=== PATIENT | male | born 1940 | race Caucasian/White ===

== ENCOUNTER 2017-07-04 15:44 | Outpatient (CLI) | payer MEDICARE, BC ==
--- NOTE | 2017-07-04 16:52 | Ultrasound Preliminary Report ---
Exam: US Duplex Ext Veins Left IMPRESSION: No evidence for deep venous thrombosis. [facility] SITE ID: [id number]
--- NOTE | 2017-07-04 16:55 | Ultrasound Report ---
EXAM: LEFT LOWER EXTREMITY VENOUS ULTRASOUND EXAM DATE: 07/04/2017 04:35 PM. CLINICAL HISTORY: LT LOWER EXTREMITY SWELLING. COMPARISON: None. TECHNIQUE: Real-time sonographic vascular imaging was performed by the pairer substandard through the lower extremity utilizing both color-flow and Doppler spectral analysis. Multiple cash applications representative static angeles ges were saved for review. FINDINGS: Common Femoral Vein (CFV): Normal. CFV-GSV Junction: Normal. Profunda Femoral Vein (PFV): Normal. Femoral Vein (FV) Prox: Normal. Femoral Vein (FV) Mid: Normal. Femoral Vein (FV) Dist: Normal. Popliteal Vein: Normal. Posterior Tibial Veins: Normal. Peroneal Veins: Normal. Other: None. IMPRESSION: No evidence for deep venous thrombosis. [facility] Referring Provider Line: [phone] SITE ID: [id number]
== END 2017-07-04 15:45 | disposition home or self-care (01) ==
LOC: DI 15:44
PROVIDERS: ATTEND Internal Medicine
DX: M79.89 Other specified soft tissue disorders (principal)

== ENCOUNTER 2017-07-14 07:42 | Outpatient (CLI) | payer MEDICARE, OTHER, BC ==
--- NOTE | 2017-07-14 15:10 | MRI Report ---
EXAM: LEFT KNEE MRI WITHOUT CONTRAST EXAM DATE: 07/14/2017 08:30 AM. CLINICAL HISTORY: Left knee pain and instability. Left lower leg swelling. COMPARISON: None. TECHNIQUE: Multiplanar, multisequence T1-weighted and fluid-sensitive sequences of the knee without c ontrast. Other: None. FINDINGS: Bones and Articular Cartilage: There are areas of grade 4 and grade 3 chondromalacia at the lateral f emoral condyle and lateral tibial plateau. Marrow edema and slight cortical irregularity at lateral f emoral condyle and lateral tibial plateau. Small osteophytes of the tibial plateau and lateral femora l condyle. Grade 2-3 chondromalacia at the medial compartment. Grade 2 chondromalacia at the patella. No subluxation. No acute fracture. Medial Meniscus: Horizontal tear at the posterior horn. A tiny portion of the posterior horn is flipp ed inferomedially within the medial tibial recess (coronal image 21). Lateral Meniscus: There is a horizontal tear and degenerative free edge fraying within the entire lat eral meniscus. The lateral meniscal body is partially extruded laterally from the lateral joint leilani rtment. Cruciate Ligaments: The anterior and posterior cruciate ligaments are intact. Collateral Ligaments: The medial collateral and lateral collateral ligamentous structures are intact. Tendons: The quadriceps, patellar, semimembranosus, and popliteus tendons are unremarkable. Musculature: No edema or fatty atrophy. Other: Small joint effusion. Small Jones's cyst containing loose bodies or debris. The cyst appears p artially ruptured. The medial and lateral retinacula are intact. There is edema within the infrapat ellar fat pad. IMPRESSION: 1. 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 2. Horizontal tear of the posterior horn medial meniscus. A tiny portion of the posterior horn is fli pped inferomedially within the medial tibial recess. 3. Horizontal tear and degenerative free edge fraying with the entire lateral meniscus. The lateral m eniscal body is partially extruded laterally from the lateral joint compartment. 4. Small joint effusion. Small Jones's cyst containing loose bodies or debris. The cyst appears parti ally ruptured. [facility] MUSCULOSKELETAL RADIOLOGY SECTION Referring Provider Line: [phone] SITE ID: [id number]
== END 2017-07-14 07:43 | disposition home or self-care (01) ==
LOC: DI 07:42
PROVIDERS: ATTEND Nurse Practitioner Family
DX: M17.12 Unilateral primary osteoarthritis, left knee (principal); S83.242A Other tear of medial meniscus, current injury, left knee, initial encounter; S83.282A Other tear of lateral meniscus, current injury, left knee, initial encounter; M25.462 Effusion, left knee; M71.22 Synovial cyst of popliteal space [Baker], left knee